=== PATIENT | female | born 1965 | race African-American/Black ===

== ENCOUNTER 2021-04-05 11:07 | Emergency (ER) | payer SELFPAY ==
[2021-04-05 11:23] VITALS: BMI 35.4
[2021-04-05] MEDS ORDERED: amLODIPine BESYLATE 10 MG TABLET (FP) PO ONE (11:58)
[2021-04-05] MEDS ORDERED: LABETALOL HCL 200 MG TABLET (FP) PO ONE (11:58)
[2021-04-05] MEDS ORDERED: amLODIPine BESYLATE 5 MG TABLET (FP) ONE (12:08)
[2021-04-05] MEDS ORDERED: LABETALOL HCL 100 MG TABLET (FP) ONE (12:08)
[2021-04-05 12:58] VITALS: PULSE 89; TEMP 98.5
[2021-04-05 13:56] VITALS: BP 142/69
== END 2021-04-05 14:20 | disposition home or self-care (01) ==
LOC: JER 11:07
DX: I16.0 Hypertensive urgency (principal); I10 Essential (primary) hypertension
CPT/HCPCS: 93005; 93010; 99283-25